=== PATIENT | male | born 1960 | race Caucasian/White ===

== ENCOUNTER 2016-10-09 12:54 | Inpatient (IN) | payer OTHER ==
[2016-10-09] MEDS ORDERED: HEPARIN 1000 UNIT/1 ML MDV ONE (13:38)
[2016-10-09] MEDS ORDERED: BUPIVACAINE 0.5% 30 ML SDV ONE (13:38)
[2016-10-09] MEDS ORDERED: ceFAZolin 1 GM/5 ML SYR ONE (13:38)
[2016-10-09] MEDS ORDERED: TRANEXAMIC ACID 1,000 MG in NS 100 ML IV ONE (14:00)
[2016-10-09] MEDS ORDERED: cefOXitin SODIUM 1 GM in D5W 50 ML IV ONE (14:00)
[2016-10-09] MEDS ORDERED: fentaNYL 100 MCG/2 ML INJ ONE ×4 (14:31→19:47)
[2016-10-09] MEDS ORDERED: ONDANSETRON 4 MG/2 ML VIAL ONE ×2 (14:31→20:17)
[2016-10-09] MEDS ORDERED: METOCLOPRAMIDE 10 MG/2 ML VIAL ONE (14:31)
[2016-10-09] MEDS ORDERED: ROCURONIUM 50 MG/5 ML VIAL ONE (14:31)
[2016-10-09] MEDS ORDERED: PROPOFOL 200 MG/20 ML VIAL ONE (14:31)
[2016-10-09] MEDS ORDERED: MIDAZOLAM 2 MG/2 ML VIAL ONE (14:48)
[2016-10-09] MEDS ORDERED: ROCURONIUM 100 MG/10 ML VIAL ONE (18:08)
[2016-10-09] MEDS ORDERED: PHENYLEPHRINE HCL 100 MCG/ML SYR ONE (18:20)
[2016-10-09] MEDS ORDERED: SUGAMMADEX SODIUM 200 MG/2 ML VIAL IVP ONE (18:31)
[2016-10-09] MEDS ORDERED: NALOXONE HCL 0.4 MG/ML INJ IVP PRN (19:09)
[2016-10-09] MEDS ORDERED: ONDANSETRON 4 MG/2 ML VIAL IVP PRN (19:09)
--- NOTE | 2016-10-09 19:09 | POSTOPPROG ---
Post Op Note Date of Operation: 10/09/16 Surgeon: Raphael Mari Baker Bench: KEEGAN Poole Ehrin Papa Anesthesia: GET(General Endotracheal) Pre-op Diagnosis: rectal dysplasia Post-op Diagnosis: same Indication: 56 Y M c UC, s/p subtotal colectomy and ileostomy now c rectal dysplasia. Procedure: APR/removal of rectal stump Findings: Thickened rectum, extensively adhesed in the pelvis Inf/Abcess present in the surg proc area at time of surgery?: No EBL: 1200cc Complications: none Drains: Eduardo Hodge Specimen(s): rectal stump
[2016-10-09] MEDS ORDERED: MEPERIDINE 25 MG/ML SYR ONE (19:39)
[2016-10-09] MEDS ORDERED: HYDROmorphONE/DILAUDID 1 MG/ML SYR ONE (20:44)
[2016-10-09] MEDS: NS W/ 20 KCl/L 1,000 ML IV SCH (21:40)
[2016-10-09] MEDS: HYDROmorphONE/DILAUDID 6 MG/30 ML PCA IV PRN (21:41)
[2016-10-09] MEDS: cefOXitin SODIUM 1 GM in D5W 50 ML IV SCH (22:35)
--- NOTE | 2016-10-10 00:26 | SOAPPROG ---
SOAP Progress Note Assessment/Plan: Assessment: called to bedside due to high drainage from MEHRDAD (160 cc since 9 pm). Drain with dark serosanguinous fluid. hemodynamically stable. Will observe Plan: 10/10/16 00:26 Objective: Vital Signs Temp Pulse Resp BP Pulse Ox 36.8 C 87 16 123/102 H 96 10/09/16 23:40 10/09/16 23:40 10/09/16 23:40 10/09/16 23:40 10/09/16 23:40 10/08/16 10/09/16 10/10/16 05:59 05:59 05:59 Intake Total 3800 Output Total 2030 Balance 1770 ICD10 Worksheet Patient Problems: Problems Problem Status Onset Anemia Active Colitis Active Hematochezia Active Inflammatory bowel disease Active
[2016-10-10] MEDS: cefOXitin SODIUM 1 GM in D5W 50 ML IV SCH ×3 (04:47→16:19)
[2016-10-10 04:58] LABS: HEMATOCRIT 36.7 % (40.0-51.0); HEMOGLOBIN 12.7 g/dL (13.7-17.5)
[2016-10-10 05:14] LABS: ANION GAP 7 mEq/L (8-16); CALCIUM 7.7 mg/dL (8.5-10.4); CARBON DIOXIDE 21 mEq/l (22-31); CHLORIDE 111 mEq/L (97-110); CREATININE 0.9 mg/dL (0.7-1.3); GLOMERULAR FILTRATION RATE > 60; GLUCOSE 135 mg/dL (70-100); POTASSIUM 4.5 mEq/L (3.5-5.2); SODIUM 139 mEq/L (134-144)
[2016-10-10] MEDS: NS W/ 20 KCl/L 1,000 ML IV SCH ×2 (06:25→16:20)
--- NOTE | 2016-10-10 10:56 | SOAPPROG ---
SOAP Progress Note Assessment/Plan: Assessment: 56yo male s/p APR Had significant drainage in MEHRDAD drain overnight, seems to be decreasing now although patient has not mobilized yet. "No pain at all, feel good" PE awake alert Chest CTA B/L Abdomen bandage dry, abdomen soft to palpation Plan: ADAT HCT in AM exam stapled lower wound Saturday10/10/16 10:54 Objective: Vital Signs Temp Pulse Resp BP Pulse Ox 36.9 C 81 16 123/81 H 95 10/10/16 10:00 10/10/16 10:00 10/10/16 10:00 10/10/16 10:00 10/10/16 10:00 Laboratory Results 10/10/16 04:45 10/10/16 04:45 10/09/16 10/10/16 10/11/16 05:59 05:59 05:59 Intake Total 4723 Output Total 3570 310 Balance 1153 -310 ICD10 Worksheet Patient Problems: Problems Problem Status Onset Anemia Active Colitis Active Hematochezia Active Inflammatory bowel disease Active
[2016-10-10] MEDS: HYDROmorphONE/DILAUDID 6 MG/30 ML PCA IV PRN (16:20)
[2016-10-11] MEDS: NS W/ 20 KCl/L 1,000 ML IV SCH (05:41)
[2016-10-11] MEDS: OXYCODONE/APAP 5/325 TAB PO PRN ×4 (08:41→20:56)
[2016-10-11] MEDS ORDERED: ENOXAPARIN 40 MG/0.4 ML SYR SC SCH (09:00)
--- NOTE | 2016-10-11 12:33 | SOAPPROG ---
SOAP Progress Note Assessment/Plan: Assessment: 56yo male s/p APR No complaints of pain. tolerating reg diet. off IV pain meds PE awake alert comfortable Chest cta anteriorly, nc in place Cor rrr Abdomen incision intact with catherine, minimal serosang discharge, abdomen soft to palpation, non-tender, non-distended Rectal incision CDI with catherine Plan: Abdominal bandage changed due to slight serosanguineous drainage along the left lap staple line. Continue routine wound care. Encouraged ambulation. Leave in don catheter for the next 7 days. 10/11/16 12:39 Objective: Vital Signs Temp Pulse Resp BP Pulse Ox 37.0 C 90 18 126/78 H 90 L 10/11/16 10:20 10/11/16 10:20 10/11/16 10:20 10/11/16 10:20 10/11/16 10:20 Laboratory Results 10/11/16 04:35 10/10/16 04:45 10/10/16 10/11/16 10/12/16 05:59 05:59 05:59 Intake Total 4723 4619 Output Total 9351 5940 Balance 1158 8779 ICD10 Worksheet Patient Problems: Problems Problem Status Onset Anemia Active Colitis Active Hematochezia Active Inflammatory bowel disease Active
[2016-10-12] MEDS: OXYCODONE/APAP 5/325 TAB PO PRN ×3 (00:50→11:15)
[2016-10-12 11:58] VITALS: BP 107/81; PULSE 85; RESP 18; TEMP 97.9; O2SAT 93
--- NOTE | 2016-10-12 12:13 | PDIAF ---
- Diagnosis Diagnosis: s/p APR surgery Code Status: Full Code - Medication Management Discharge Medications: Medications to Continue on Transfer oxyCODONE/APAP 5/325 [Percocet 5/325 (*)] 1 - 2 tab PO Q4HRS PRN #0 tab [Last Taken Unknown] Discharge Medications: Refer to the Discharge Home Medication list for PRN reason. - Orders Services needed: Registered Nurse Diet Recommendation: no restrictions on diet Diet Texture: Regular Texture Diet Ellis: Yes Wound Care Instructions: Ok to shower normally over both stapled incisions and drain. Only cover if leaking. Ellis will be removed in office this Saturday Sutures/Catherine Site: catherine will be taken out in office - Follow Up Care Current Providers and Referrals: NONE *PRIMARY CARE P,. [Primary Care Provider] -
--- NOTE | 2016-10-12 13:06 | SOAPPROG ---
SOAP Progress Note Assessment/Plan: Assessment: 56yo male s/p APR No complaints of pain. tolerating reg diet. off IV pain meds PE awake alert comfortable Chest cta anteriorly, nc in place Cor rrr Abdomen incision intact with catherine, minimal serosang discharge, abdomen soft to palpation, non-tender, non-distended Rectal incision CDI with catherine Plan: ok to d/c today, needs homecare for drain, don, keep eye on wounds. 10/11/16 12:39 10/12/16 13:04 10/12/16 13:10 Objective: Vital Signs Temp Pulse Resp BP Pulse Ox 36.6 C 85 18 107/81 H 93 10/12/16 11:57 10/12/16 11:57 10/12/16 11:57 10/12/16 11:57 10/12/16 11:57 Laboratory Results 10/11/16 04:35 10/10/16 04:45 10/11/16 10/12/16 10/13/16 05:59 05:59 05:59 Intake Total 4619 890 636 Output Total 3479 6591 Balance 1431 -7555 041 ICD10 Worksheet Patient Problems: Problems Problem Status Onset Anemia Active Colitis Active Hematochezia Active Inflammatory bowel disease Active
--- NOTE | 2016-10-13 12:06 | GDS ---
[f rep st] DISCHARGE SUMMARY REASON FOR ADMISSION: APR surgery for dysplasia. HOSPITAL COURSE: The patient is a very pleasant 56-year-old male who had findings consistent with d ysplasia on recent colonoscopy. He underwent abdominoperineal resection and removal of rectal of [facility] with Dr. Mari on 10/09/2016. His hospital course was fairly unremarkable. He had a little or no pain during most of his hospital course stay. 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 Four lymph nodes negative for malignancy, negative for invasive malignancy. Patient was discharged with instructions to follow up in our office on Saturday. He was discharged wi th a Lelis catheter and a Eduardo-Hodge drain in place. Most likely, both of those will be removed in our office on Saturday October 15, 2016. He also has catherine over both incisions: His abdominal wall and his perineum. He quite possibly co uld have half of his abdominal wall catherine removed at that appointment on Saturday, but most likely h is lower stapled incision will remain that way for 2-3 weeks. This was explained to the patient upo n discharge. /[id number]/MODL
--- NOTE | 2016-10-30 12:56 | GOP ---
[f rep st] OPERATIVE REPORT DATE OF OPERATION: 10/09/2016 SURGEON: Raphael Mari MD MEDICAL BILLING ASSOCIATE: Carolyne Reyes PA-C ANESTHESIOLOGIST: Dr. Paniagua. PREOPERATIVE DIAGNOSIS: High-grade dysplasia and rectal stump following subtotal colectomy for ulce rative colitis. POSTOPERATIVE DIAGNOSIS: High-grade dysplasia and rectal stump following subtotal colectomy for ulc erative colitis. PROCEDURE PERFORMED: Abdominoperineal resection. FINDINGS: Patient found to have a markedly thickened rectum with extensive adhesions in the Pelvis. DESCRIPTION OF PROCEDURE: Patient was taken to the operating room where he received satisfactory ge neral endotracheal anesthesia by Aubrey Paniagua MD. He was placed in a supine position in low st irrups and prepped and draped in the usual sterile fashion. A short incision was made. A Veress ne edle was inserted. Pneumoperitoneum was established. A trocar was introduced. Laparoscope introdu doris, but there were marked total adhesions in the pelvis preventing significant progress laparoscopi ekm. That was discontinued, and a midline abdominal incision was made, carried through the linea alba, and the abdomen was entered. Small bowel adhesions were carefully dissected free and taken do wn away from the rectal stump, which was identified. Small bowel was retracted away with care to av oid injury to the ileostomy. Using the Harmonic Scalpel and blunt and sharp dissection. The rectal stump was freed up from the lateral connections, and dissection extended into the presacral space, removing the mesorectum as well. This was all mobilized circumferentially down to the levator muscl es and dissected off the back of the prostate and seminal vesicles anteriorly. After completion of that dissection from above, case and transferred down to the perineum where the rectum was sutured s hut. An elliptical skin incision was made, and the rectum was dissected free from below, dividing t he levator muscles with electrocautery and entering the posterior rectal space. Good traction on th e rectum. At that point, a circumferential dissection was completed, freeing up the entire stump, w hich was then removed and sent to Pathology. Hemostasis was carefully obtained with electrocautery. The wound was irrigated. The perineal wound was closed with a running 2-0 Vicryl suture for the s ubcutaneous tissue and skin catherine for the skin. Gloves and instruments were changed, we returned up to the abdominal incision. Wound was irrigated and further hemostasis was obtained. A 15 round MEHRDAD drain was brought out through a separate stab incision and placed in the operative bed. Peritone um was closed with a running 2-0 Vicryl suture. Wound was irrigated. Small bowel was returned into the pelvis. Linea alba was closed with a running #1 PDS suture, 3-0 Vicryl for the subcu, and skin catherine for the skin. The drain was secured to the skin with a silk suture. All wounds were infil trated with 0.5% Marcaine. Trocar sites were closed with skin catherine, as well. There were no comp lications, but there was a significant amount of blood loss, approximately 1200 cc. He was taken to the recovery room in good condition. /[id number]/MODL
== END 2016-10-12 13:45 | disposition home or self-care (01) | DRG 333 ==
LOC: F3E 12:54
PROVIDERS: ADMIT Surgery; ATTEND Surgery
PROC: 0DTP4ZZ Resection of Rectum, Percutaneous Endoscopic Approach (ICD-10-PCS; principal; 2016-10-09 15:00)
DX: D12.8 Benign neoplasm of rectum (principal); K51.919 Ulcerative colitis, unspecified with unspecified complications; E11.9 Type 2 diabetes mellitus without complications; I10 Essential (primary) hypertension; Z93.3 Colostomy status
CPT/HCPCS: J0697; J1170; J1650; J2250; J2370; J2405; J2704; J2765; J3010; P9035